=== PATIENT | male | born 1955 | race Caucasian/White ===

== ENCOUNTER → 2018-04-05 | Outpatient (CLI) | payer OTHER ==
[~2018-04-05] VITALS: Ht 170.2 cm; Wt 83.2 kg
[~2018-04-05] MED LIST: ABILIFY 5 MG TAB5 M1 PO; AMITRIPTYLINE H10 M3 PO; BUSPIRONE HCL10 MG PO; CELEXA20 MG PO; CLONIDINE0.1 PO; COMPACT COMPRE1 EACH INH; COREG6.25 MG PO; FLOVENT HFA 4444 MCG INH; FLOVENT HFA12 GM INH; FLUTICASONE PRO30 G1; HYDROCODON-ACE1 EAC5 PO; K-DUR10 MEQ PO; LASIX 20 MG TAB20 MG PO; MSL20MG/ML EPIDURAL; NORCO 10-325 T1 EACH PO; NU-MAG71.5 MG PO; OMEPRAZOLE 20 M20 M1 PO; OXYGEN MISCELL; PERCOCET 10-321 EAC1 PO; PROAIR RESPICL90 MCG INH; TRIAMTERENE-HC1 EAC1 PO; VALIUM5 MG PO; VENTOLIN HFA 1818 GM INH; ZYRTEC10 M2 PO
--- NOTE | ~2018-04-05 | HPC ---
Formerly [facility] [address] [address] PAIN MANAGEMENT CONSULTATION Name: CHICHI ALMONTE Room #: REG [facility] [id number] Admission: 04/05/18 ������������������ Attend Phys: Chichi Merino MD Discharge: ������������������ Date of : 53 Report #: [id number] THIS REPORT FOR: //name// CC: Jose Daniel Merino DATE OF SERVICE: 04/05/2018 CHIEF COMPLAINT: Followup visit for chronic low back pain, cervicalgia with spondylosis. Management of high risk medication after idling intrathecal infusion pump. This is the first visit for this patient at the [place] pain management center. I have followed him at [facility]. He had an intrathecal infusion pump placed, but we could never seem to make it work effectively for him despite multiple adjustments. He felt that it was "making him crazy." Since going off of the intrathecal medication, he says he is doing much better. He is now receiving oral opioids under terms of written opioid agreement. I reviewed his detailed responsibilities primarily safeguarding medications, taking them as ordered by the physician and receiving medications from only one prescribing physician. His daily dose is [place] 10/325 one tablet taken on schedule 3 times a day. He has no significant side effects. His morphine milligram equivalency is 30. PQRS REVIEW: He has degenerative osteoarthritis involving multiple joints including shoulders, hips, knees and ankles. He does not smoke, is on no blood thinning medications and does not appear to be a fall risk. He is not hypertensive. He has signed an opioid agreement. He is considered low to moderate risk for addictive behaviors. His functional assessment score today is 31/70. He continues to smoke 1-1/2 pack of cigarettes per day and was counseled on smoking cessation and provided with handouts. He is not motivated to quit at this time. The influence of smoking on chronic pain was discussed. PHYSICAL EXAMINATION: Pleasant gentleman. Blood pressure is 130/93, heart rate 90, respirations 16. BMI 28.7. He moves independently from sitting to standing position. His gait is nonantalgic. He has tenderness of his shoulders, hips, knees and ankles. There is no swelling. No joint effusions. No redness. Straight leg raising is positive bilaterally. He has pain across the lumbosacral segment with decreased range of motion. IMPRESSION: 1. Chronic intractable low back pain with radiculopathy. 2. Osteoarthritis, multiple joints. 3. Cervical spondylosis without radiculopathy. Formerly [facility] [address] [place] [address] PAIN MANAGEMENT CONSULTATION Name: CHICHI ALMONTE Room #: REG [facility]#: [id number] Admission: 04/05/18 ������������������ Attend Phys: Chichi Merino MD Discharge: ������������������ Date of : 53 Report #: [id number] 4. Management of high risk opioid medications under terms of written agreement. Medications renewed for monthly release over the next 3 months and I will see him back in the pain clinic. Urine drug screen or a buccal drug screen will be performed annually in a random fashion. ��������������������������������������������� ���������������������������������������� By: ��������������������������������������������� 1616 0024 Chichi Merino MD /nt
[2018-04-05 10:25] VITALS: BP 130/93
--- NOTE | 2018-04-05 11:01 | NUR ---
Pain Clinic Assessment: 1. History of Osteoarthritis: History of Rheumatoid Arthritis: 2. Height: 5 ft. 7 in. 170.2 cm. Weight: 183.4 lb. oz. 83.190 kg. Patient's BMI: 28.7 3. Vital Signs: BP: 130/93 Pulse: 90 Resp: 16 Temp: 02 Sat: 95 ECG Mon: 4. Pain Intensity: 6 5. Fall Risk: Dizziness: N Needs help standing or walking: N Fallen in the last 3 months: N Fall risk comments: 6. Patient on Blood Thinner: None 7. History of Hypertension: Y 8. Opioid Therapy greater than 6 weeks: Opiate Contract Signed: 9. Risk Assessment Tool Provided: 10. Functional Assessment Tool: 11. Recreational Drug Use: Never Drug Type: Tobacco Use: Current Every Day Smoker Tobacco Type: Cigarettes Amount or Packs/day: 1.5 How Many Years: 45 Alcohol Use: No Frequency: Quant:
== END ==
LOC: PAIN 07:03
DX: M47.22 Other spondylosis with radiculopathy, cervical region (principal); G89.4 Chronic pain syndrome; M19.90 Unspecified osteoarthritis, unspecified site; Z79.899 Other long term (current) drug therapy

== ENCOUNTER → 2018-07-01 | Outpatient (CLI) | payer OTHER ==
[~2018-07-01] VITALS: Ht 170.2 cm; Wt 90.7 kg
[~2018-07-01] MED LIST changes: +ANORO ELLIPTA1 EACH INH
[2018-07-01 14:08] VITALS: BP 155/95
--- NOTE | 2018-07-01 14:26 | NUR ---
Pain Clinic Assessment: 1. History of Osteoarthritis: History of Rheumatoid Arthritis: 2. Height: 5 ft. 7 in. 170.2 cm. Weight: 200.0 lb. oz. 90.720 kg. Patient's BMI: 31.3 3. Vital Signs: BP: 155/95 Pulse: 82 Resp: 20 Temp: 02 Sat: 100 ECG Mon: 4. Pain Intensity: 6 5. Fall Risk: Dizziness: N Needs help standing or walking: N Fallen in the last 3 months: N Fall risk comments: 6. Patient on Blood Thinner: None 7. History of Hypertension: Y 8. Opioid Therapy greater than 6 weeks: Y Opiate Contract Signed: 9. Risk Assessment Tool Provided: 10. Functional Assessment Tool: 11. Recreational Drug Use: Never Drug Type: Tobacco Use: Former Smoker Tobacco Type: Cigarettes Amount or Packs/day: 0 How Many Years: Alcohol Use: No Frequency: Quant:
--- NOTE | 2018-07-02 11:04 | HPC ---
[facility] [address] [address] PAIN MANAGEMENT CONSULTATION Name: SUZYCHICHI Kristen [facility] [id number] Admission: 07/01/18 ������������������ Attend Phys: Maris Johnson Discharge: ������������������ Date of : 53 Report #: [id number] THIS REPORT FOR: //name// CC: Maris Alex DATE OF SERVICE: 07/01/2018 CHIEF COMPLAINT: Chronic low back pain, cervicalgia and spondylosis. HISTORY OF PRESENT ILLNESS: This is a pleasant 62-year-old gentleman who returns to the pain clinic today for refill of his opioid medications. He has been seen by Dr. Merino for quite some time, mostly at [facility]. He does have an intrathecal infusion pump that is on minimal rate. He tells me he would like to have it removed, but he does not want to have another surgery, so it is on minimum rate and he does not use it for pain control. The patient tells me today that his pain is 6/10, mostly in his neck, shoulders, arms and his hips. He feels that his hip pain is related to an increase in weight that he has put on over the winter since he has stopped smoking. His weight today is 200 pounds, and previously it was 183. He tells me he is going to try and start walking now that the weather is better to decrease some of this weight. He feels that his pain is a shooting, constant deep ache, worse with movement and weather and better with the medication. The patient tells me his ultimate goal is to wean off all of his narcotics, but does not feel that he could do that currently, though he has decreased from 6 pills a day to 3. ALLERGIES: NONSTEROIDAL ANTI-INFLAMMATORIES, CODEINE, IBUPROFEN, ADHESIVE AND BENADRYL. CURRENT MEDICATIONS: Hydrocodone 10/325 every 8 hours, oxygen at night, albuterol inhaler as needed, Flovent inhaler twice a day, Lasix 20 mg b.i.d., Zyrtec 10 mg daily, Nu-Mag daily, clonidine 0.1 mg b.i.d., buspirone 10 mg t.i.d., Elavil 10 mg at bedtime, diazepam 5 mg at bedtime p.r.n., potassium 10 mEq b.i.d., triamterene/hydrochlorothiazide daily, and omeprazole 20 mg b.i.d. PQRS: The patient has osteoarthritic changes involving multiple joints of shoulders, hips, knees and ankles. Denies any rheumatoid arthritis. Height is 5 feet 7 inches, weight is 200, BMI is 31, this is a 20-pound increase since his last visit. Vital signs: Blood pressure 155/95, pulse 82, respirations 20, oxygen sat 100. Pain score is 6/10. Fall risk. Denies dizziness. Does not need help with walking or standing. He has not fallen in the last 3 months. The patient is not on any blood thinners. He does have a history of hypertension. [address] [address] PAIN MANAGEMENT CONSULTATION Name: CHICHI ALMONTE Room #: REG [facility]#: [id number] Admission: 07/01/18 ������������������ Attend Phys: Maris Johnson Discharge: ������������������ Date of : 53 Report #: [id number] Opioid therapy is greater than 6 weeks. His risk assessment tool is low. His functional assessment is 31/70. Recreational drug use: He denies. He is a former smoker and does not drink alcohol. We did check the prescription monitoring system. The patient is filling appropriately from Dr. Chichi Merino and he is due for his medications today. PHYSICAL EXAMINATION: GENERAL: This is a very pleasant 62-year-old gentleman who appears his stated age. Placing his pain score today at 6/10. He is alert and orientated. HEENT: Normocephalic, atraumatic. Extraocular eye muscles are intact. Mucous membranes are moist. MUSCULOSKELETAL: He moves independently from sitting to standing position. His gait is nonantalgic. He has tenderness in his shoulders, hips and neck. He does have pain across his lumbosacral area that does not radiate into his legs. His lower extremity strength judged to be 5/5 in all major muscle groups and upper extremity strength judged to be 5/5 in all major muscle groups and tone. IMPRESSION: 1. Chronic intractable low back pain with radiculopathy. 2. Osteoarthritis of multiple joints. 3. Cervical spondylosis without radiculopathy. 4. Management of high risk medications under terms of written opioid agreement. We reviewed the fact that opiate medications are being used to provide analgesia adequate to support activities of daily living, not attempting to achieve a specific pain score on the 0-10 Visual Analog Scale. The current opiate medications are providing sufficient analgesia to allow the patient to participate in activities of daily living. The patient is not exhibiting any aberrant behavior suggestive of drug diversion. The patient is not having any adverse reactions to medications. The patient is not suffering from daytime somnolence or mental acuity changes. The patient is managing opiate-induced constipation with appropriate hlhm-swb-mvrgqyl agents and dietary considerations. The patient was counseled on concern for caution with operating a motor vehicle while using opiate medications. A physical exam was performed and the patient's functional status was evaluated. All patients with back pain were advised against the bed rest greater than 4 days and were advised to return to normal activities. Pain score assessment was noted and the treatment plan was reviewed with the patient. All current medications, both prescribed and OTC were reviewed and reconciled on the electronic medical record. Tobacco screening was accomplished and smoking cessation was advised when indicated. BMI was noted and diet/exercise modification was recommended for all patients following outside normal parameters. [address] [address] PAIN MANAGEMENT CONSULTATION Name: SUZYCHICHI Kristen Room #: REG [facility].#: [id number] Admission: 07/01/18 ������������������ Attend Phys: Maris Johnson Discharge: ������������������ Date of : 53 Report #: [id number] I reviewed with the patient today their responsibilities to safeguard prescription medications, reviewed their responsibility to utilize medications only as prescribed by the physician. They are to seek and receive pain medications only from 1 physician group ( [facility]). They are to use 1 pharmacy and keep the clinic informed if they change pharmacies. Their responsibilities include making followup visits in a timely fashion and to avoid abrupt discontinuation of medication usage. Their responsibilities further include bringing their medications (bottles from the pharmacy with residual pills) to the visit for possible confirmation of pill counts and the patient understands it is their responsibility to submit to random drug screens to ensure both that the medications prescribed are present, and that no other controlled substances are present. All prescriptions provided today were generated electronically. PLAN: 1. We discussed treatment options with the patient today. The patient tells me that he is doing quite well on his current pain medication regimen. His ultimate goal is to wean off of them, but feels like he cannot do that right now until he loses some weight that he had gained from his smoking cessation. He tells me he needs to start exercising and he is planning to doing that now with his , working up slowly. He said they both need to lose some weight. The patient tells me that they have only been walking short distances currently. He would like to continue his medication for now. denies constipation or overmedicated feeling. 2. Script was given today for hydrocodone , #90 with release today, 4-week and 8-week. 3. Dr. Chichi Merino did come and see the patient as well today in collaborative care. ��������������������������������������������� <ELECTRONICALLY SIGNED> ���������������������������������������� By: Maris Johnson ��������������������������������������������� 07/02/18 1104 1616 [id number] Maris Johnson /janette
== END ==
LOC: PAIN 07:00
DX: M47.812 Spondylosis without myelopathy or radiculopathy, cervical region (principal); M19.90 Unspecified osteoarthritis, unspecified site; G89.4 Chronic pain syndrome; Z88.8 Allergy status to other drugs, medicaments and biological substances; Z79.899 Other long term (current) drug therapy

== ENCOUNTER → 2018-09-24 | Outpatient (CLI) | payer OTHER ==
[~2018-09-24] VITALS: Ht 170.2 cm; Wt 98.2 kg
[2018-09-24 08:45] VITALS: BP 155/96
--- NOTE | 2018-09-24 08:56 | NUR ---
Pain Clinic Assessment: 1. History of Osteoarthritis: History of Rheumatoid Arthritis: 2. Height: 5 ft. 7 in. 170.2 cm. Weight: 216.6 lb. oz. 98.249 kg. Patient's BMI: 33.9 3. Vital Signs: BP: 155/96 Pulse: 72 Resp: 14 Temp: 02 Sat: 100 ECG Mon: 4. Pain Intensity: 5-6 5. Fall Risk: Dizziness: N Needs help standing or walking: N Fallen in the last 3 months: N Fall risk comments: 6. Patient on Blood Thinner: None 7. History of Hypertension: Y 8. Opioid Therapy greater than 6 weeks: Y Opiate Contract Signed: 9. Risk Assessment Tool Provided: LOW 10. Functional Assessment Tool: 11. Recreational Drug Use: Never Drug Type: Tobacco Use: Former Smoker Tobacco Type: Amount or Packs/day: How Many Years: Alcohol Use: No Frequency: Quant:
--- NOTE | 2018-09-27 11:24 | HPC ---
[facility] [address] [place] [address] PAIN MANAGEMENT CONSULTATION Name: CHICHI ALMONTE Room #: REG [facility] Dai#: [id number] Admission: 09/24/18 Attend Phys: Maris Johnson Discharge: Date of : 53 Report #: [id number] THIS REPORT FOR: //name// CC: Maris Alex DATE OF SERVICE: 09/24/2018 CHIEF COMPLAINT: Chronic low back pain, cervicalgia and spondylosis. HISTORY OF PRESENT ILLNESS: This is a 62-year-old gentleman who returned to the pain clinic today for refill of his medications. He has been following up with Dr. Chichi Merino for quite some time. He does have intrathecal pump placed, though it is not in use. He would have it removed, but he does not want to have another surgery. Today, he reports his pain score is a 5/10 that is well controlled with his hydrocodone. He complains of neck pain that does radiate into his shoulders. It is worse with lifting and movement and weather changes, better with his medication and relaxing. He denies any problems with constipation or daytime sleepiness. The patient has quit smoking over the past year. His last cigarette he tells me he was 7 months ago, but since he has stopped smoking he has gained weight. Our visit with him in March where we did weigh him was 183. Today his current weight is 216, which is a significant weight gain. He does tell me he has been having some more difficulty breathing since he has quit smoking. ALLERGIES: NONSTEROIDAL ANTI-INFLAMMATORIES, CODEINE, IBUPROFEN, ADHESIVE TAPE AND BENADRYL. CURRENT LIST OF MEDICATIONS: Hydrocodone 10/325 three times a day, Anoro Ellipta inhaler, Flovent, Lasix, Zyrtec, Nu-Mag, clonidine, buspirone, Elavil, diazepam, potassium, triamterene, omeprazole. PQRS: 1. He has arthritic changes involving multiple joints of his shoulders, hips, knees and ankles. He denies any rheumatoid arthritis. 2. Height is 5 feet 7 inches, weight is 216, BMI is 33. 3. Vital signs: 155/96, pulse is 72, respirations 14, oxygen sat is 100. 4. Pain score is 5-6. 5. Denies dizziness. Does not need help walking or standing, has not fallen in the last 3 months. 6. The patient is not on any blood thinners, but does take medicine for hypertension. His opioid therapy is greater than 6 weeks; therefore, an opioid signed contract is on the chart. His risk assessment tool is low. Functional assessment is . 7. Recreational drug use, he denies. He is a former smoker and does not drink [address] [address] PAIN MANAGEMENT CONSULTATION Name: CHICHI ALMONTE Room #: REG [facility] Dai#: [id number] Admission: 09/24/18 Attend Phys: Maris Johnson Discharge: Date of : 53 Report #: [id number] alcohol. According to the prescription monitoring system, the patient is filling appropriately and due for his medications to be refilled. PHYSICAL EXAMINATION: GENERAL: This is a pleasant 62-year-old gentleman who appears his stated age. He is alert and orientated, rating his pain score today at 5/6. HEENT: Normocephalic, atraumatic. Extraocular eye muscles are intact. Mucous membranes are moist. MUSCULOSKELETAL: He moves from sitting to standing without difficulty. His gait is nonantalgic. He has tenderness across his shoulders and his neck, radiates down into bilateral arms today. His lower extremity strength judged to be 5/5 in all major muscle groups. Upper extremity strength judged to be 5/5 in all major muscle groups. He does have an intrathecal pump placed in his lower left abdomen. IMPRESSION: 1. Chronic intractable low back pain with radiculopathy. 2. Osteoarthritis of multiple joints. 3. Cervical spondylosis with radiculopathy. 4. Management of high risk medications under terms of written opioid agreement. We reviewed the fact that opiate medications are being used to provide analgesia adequate to support activities of daily living, not attempting to achieve a specific pain score on the 0-10 Visual Analog Scale. The current opiate medications are providing sufficient analgesia to allow the patient to participate in activities of daily living. The patient is not exhibiting any aberrant behavior suggestive of drug diversion. The patient is not having any adverse reactions to medications. The patient is not suffering from daytime somnolence or mental acuity changes. The patient is managing opiate-induced constipation with appropriate gaos-lzs-pkhvzvn agents and dietary considerations. The patient was counseled on concern for caution with operating a motor vehicle while using opiate medications. A physical exam was performed and the patient's functional status was evaluated. All patients with back pain were advised against the bed rest greater than 4 days and were advised to return to normal activities. Pain score assessment was noted and the treatment plan was reviewed with the patient. All current medications, both prescribed and OTC were reviewed and reconciled on the electronic medical record. Tobacco screening was accomplished and smoking cessation was advised when indicated. BMI was noted and diet/exercise modification was recommended for all patients following outside normal parameters. I reviewed with the patient today their responsibilities to safeguard prescription medications, reviewed their responsibility to utilize medications only as prescribed by the physician. They are to seek and receive pain [facility] [address] [place] [address] PAIN MANAGEMENT CONSULTATION Name: CHICHI ALMONTE Room #: REG [facility]#: [id number] Admission: 09/24/18 Attend Phys: Maris Johnson Discharge: Date of : 53 Report #: [id number] medications only from 1 physician group ( [facility]). They are to use 1 pharmacy and keep the clinic informed if they change pharmacies. Their responsibilities include making followup visits in a timely fashion and to avoid abrupt discontinuation of medication usage. Their responsibilities further include bringing their medications (bottles from the pharmacy with residual pills) to the visit for possible confirmation of pill counts and the patient understands it is their responsibility to submit to random drug screens to ensure both that the medications prescribed are present, and that no other controlled substances are present. All prescriptions provided today were generated electronically. PLAN: 1. We discussed treatment options with the patient today. The patient recently has quit smoking over the past few months. We praised him for that though he has gained significant weight up 40 pounds since March of this year. We encouraged him to decrease his Pepsi intake. He tells us that he drinks six 20-ounce bottles a day, which has significant amount of calories. He tells me he does not want to stop that and drink water. We encouraged him to at least switch to diet. How those are empty calories just adding to his weight gain. We also talked about increasing his exercise to help decrease this weight gain. 2. Scripts given for his hydrocodone , #90 for release today for an 8 week. The patient denies any problems with constipation or daytime sleepiness. His current morphine mEq is 30 MME according to the CDC guidelines. 3. The patient will return in [address] Dontrell Baum did see the patient today and collaborated care. <ELECTRONICALLY SIGNED> By: Maris Johnson 09/27/18 1124 0923 [id number] Maris Johnson /nt
== END ==
LOC: PAIN 06:40
DX: M47.22 Other spondylosis with radiculopathy, cervical region (principal); M47.26 Other spondylosis with radiculopathy, lumbar region; M19.90 Unspecified osteoarthritis, unspecified site; Z79.891 Long term (current) use of opiate analgesic; Z88.8 Allergy status to other drugs, medicaments and biological substances; Z91.048 Other nonmedicinal substance allergy status; Z79.899 Other long term (current) drug therapy

== ENCOUNTER → 2018-12-16 | Outpatient (CLI) | payer OTHER ==
[~2018-12-16] VITALS: Ht 170.2 cm; Wt 91.5 kg
[2018-12-16 09:01] VITALS: BP 129/85
--- NOTE | 2018-12-16 09:13 | NUR ---
Pain Clinic Assessment: 1. History of Osteoarthritis: SPINE KNEES LEFT SHOULDER History of Rheumatoid Arthritis: Not Applicable 2. Height: 5 ft. 7 in. 170.2 cm. Weight: 201.8 lb. oz. 91.536 kg. Patient's BMI: 31.6 3. Vital Signs: BP: 129/85 Pulse: 83 Resp: 14 Temp: 02 Sat: 95 ECG Mon: 4. Pain Intensity: 7-8 5. Fall Risk: Dizziness: N Needs help standing or walking: N Fallen in the last 3 months: N Fall risk comments: 6. Patient on Blood Thinner: None 7. History of Hypertension: Y 8. Opioid Therapy greater than 6 weeks: Y Opiate Contract Signed: 9. Risk Assessment Tool Provided: LOW-2 10. Functional Assessment Tool: 11. Recreational Drug Use: Never Drug Type: Tobacco Use: Former Smoker Tobacco Type: Amount or Packs/day: How Many Years: Alcohol Use: No Frequency: Quant:
--- NOTE | 2018-12-17 10:12 | HPC ---
[facility] [address] [address] PAIN MANAGEMENT CONSULTATION Name: MARCIOMAXINECHICHI Kristen [facility] #: [facility] [id number] Admission: 12/16/18 Attend Phys: Maris Johnson Discharge: Date of : 53 Report #: [id number] THIS REPORT FOR: //name// CC: Maris Alex DATE OF SERVICE: 12/16/2018 CHIEF COMPLAINT: Low back pain, cervicalgia and spondylosis. HISTORY OF PRESENT ILLNESS: This is a 62-year-old gentleman who returns to the pain clinic today for refill of his medications that he uses to help control his ongoing neck pain that does radiate into his bilateral arms as well as his left foot pain. He does complain of low back pain at times as well. All these pains are worse with movement, lifting and standing and weather changes. He rates his pain score as 7-8 today. He denies any problems with constipation or daytime sleepiness from this medication. He feels that when he relaxes and repositioning himself as well as using his medication that his pain relief is better. He is doing quite well on his current regimen. The patient continues to not smoke and has been 8 months. He had complained last time he was gaining weight, so we encouraged him to decrease his Pepsi intake and try to decrease his caloric intake and be as active as he is able and today he is down from 216-201 in his weight. He reports that it is hard to decrease his Pepsi consumption, but he is feeling better since he has lost some weight. ALLERGIES: NONSTEROIDAL ANTI-INFLAMMATORIES, CODEINE, IBUPROFEN, ADHESIVE AND BENADRYL. CURRENT LIST OF MEDICATIONS: Hydrocodone 10/325 t.i.d., Anoro Ellipta inhaler daily, Lasix 20 mg b.i.d., Zyrtec p.r.n., magnesium daily, clonidine 0.1 mg b.i.d., buspirone 10 mg t.i.d., amitriptyline 20 mg daily, Valium 5 mg p.r.n., potassium 10 mEq b.i.d., triamterene/hydrochlorothiazide daily and omeprazole daily. PQRS: 1. He has a history of osteoarthritis in his spine, knees and left shoulder. He denies any rheumatoid arthritis. 2. Height is 5 feet 7 inches, weight is 201. BMI is 31. 3. Vital signs 129/85, pulse is 83, respirations 14, oxygen sat is 95. 4. Pain score is 7-8. 5. Denies dizziness, does not need help walking or standing, has not fallen in the last 3 months. 6. The patient is not on any blood thinners, but does take medicine for hypertension. [facility] [address] [place] [address] PAIN MANAGEMENT CONSULTATION Name: SUZYCHICHI Kristen Room #: REG [facility]#: [id number] Admission: 12/16/18 Attend Phys: Maris Johnson Discharge: Date of : 53 Report #: [id number] 7. Opioid therapy is greater than 6 weeks. His risk assessment tool is low. Functional assessment is . 8. Recreational drug use, he denies. He is a former smoker and does not drink alcohol. According to the prescription monitoring system, the patient is filling appropriately for his medication and is due to fill them this weekend. We will check a drug screen on this patient today and it has been greater than a year since his last screening. PHYSICAL EXAMINATION: GENERAL: This is a very pleasant 62-year-old gentleman who appears his stated age, placing his current pain score at 7-8. He is alert and orientated. HEENT: Normocephalic, atraumatic. Extraocular eye muscles are intact. Mucous membranes are moist. MUSCULOSKELETAL: The patient walks with a slightly antalgic gait. He moves from sitting to standing slowly and without difficulty. He has tenderness in his bilateral shoulders and his paraspinal muscles of his neck, worse with raising his arms or turning his head. Lower extremity strength judged to be 5/5 in all major muscle groups. He complains of numbness in his left foot. IMPRESSION: 1. Chronic intractable low back pain with radiculopathy. 2. Cervical spondylosis with radiculopathy. 3. Cervicalgia and spondylosis. 4. Osteoarthritis of multiple joints. 5. Management of high risk medications under terms of written opioid agreement. We reviewed the fact that opiate medications are being used to provide analgesia adequate to support activities of daily living, not attempting to achieve a specific pain score on the 0-10 Visual Analog Scale. The current opiate medications are providing sufficient analgesia to allow the patient to participate in activities of daily living. The patient is not exhibiting any aberrant behavior suggestive of drug diversion. The patient is not having any adverse reactions to medications. The patient is not suffering from daytime somnolence or mental acuity changes. The patient is managing opiate-induced constipation with appropriate vwaz-mdk-svfbeax agents and dietary considerations. The patient was counseled on concern for caution with operating a motor vehicle while using opiate medications. A physical exam was performed and the patient's functional status was evaluated. All patients with back pain were advised against the bed rest greater than 4 days and were advised to return to normal activities. Pain score assessment was noted and the treatment plan was reviewed with the patient. All current medications, both prescribed and OTC were reviewed and reconciled on the electronic medical record. Tobacco screening was accomplished and smoking [facility] [address] [place] [address] PAIN MANAGEMENT CONSULTATION Name: CHICHI ALMONTE Room #: REG [facility].#: [id number] Admission: 12/16/18 Attend Phys: Maris Johnson Discharge: Date of : 53 Report #: [id number] cessation was advised when indicated. BMI was noted and diet/exercise modification was recommended for all patients following outside normal parameters. I reviewed with the patient today their responsibilities to safeguard prescription medications, reviewed their responsibility to utilize medications only as prescribed by the physician. They are to seek and receive pain medications only from 1 physician group ( [facility]). They are to use 1 pharmacy and keep the clinic informed if they change pharmacies. Their responsibilities include making followup visits in a timely fashion and to avoid abrupt discontinuation of medication usage. Their responsibilities further include bringing their medications (bottles from the pharmacy with residual pills) to the visit for possible confirmation of pill counts and the patient understands it is their responsibility to submit to random drug screens to ensure both that the medications prescribed are present, and that no other controlled substances are present. All prescriptions provided today were generated electronically. PLAN: 1. We discussed treatment options with the patient today. He is doing well on his current pain regimen of hydrocodone 10/325 three times a day. We will refill these medicines today, 4-week and 8-week. This does place the patient at 30 morphine mEq according to the CDC guidelines. 2. We will obtain a urine specimen for random drug screen today. 3. Congratulated the patient on his continued smoking and his decreased weight loss. Since our last visit in September, he is down 15 pounds. 4. The patient is seen by Dr. Chichi Merino who also collaborated care today. <ELECTRONICALLY SIGNED> By: Maris Johnson 12/17/18 [id number] Maris Johnson /nt
== END ==
LOC: PAIN 07:00
DX: Z76.0 Encounter for issue of repeat prescription (principal); M47.22 Other spondylosis with radiculopathy, cervical region; I10 Essential (primary) hypertension; Z88.5 Allergy status to narcotic agent; Z88.6 Allergy status to analgesic agent; Z88.8 Allergy status to other drugs, medicaments and biological substances; Z79.891 Long term (current) use of opiate analgesic; Z79.899 Other long term (current) drug therapy

== ENCOUNTER → 2019-03-10 | Outpatient (CLI) | payer OTHER ==
[~2019-03-10] VITALS: Ht 170.2 cm; Wt 92.4 kg
[2019-03-10 09:01] VITALS: BP 129/82
--- NOTE | 2019-03-10 09:21 | NUR ---
Pain Clinic Assessment: 1. History of Osteoarthritis: SPINE KNEES LEFT SHOULDER History of Rheumatoid Arthritis: Not Applicable 2. Height: 5 ft. 7 in. 170.2 cm. Weight: 203.6 lb. oz. 92.352 kg. Patient's BMI: 31.9 3. Vital Signs: BP: 129/82 Pulse: 113 Resp: 14 Temp: 02 Sat: 90 ECG Mon: 4. Pain Intensity: 7 5. Fall Risk: Dizziness: Y Needs help standing or walking: N Fallen in the last 3 months: N Fall risk comments: 6. Patient on Blood Thinner: None 7. History of Hypertension: Y 8. Opioid Therapy greater than 6 weeks: Y Opiate Contract Signed: 9. Risk Assessment Tool Provided: LOW-2 10. Functional Assessment Tool: 11. Recreational Drug Use: Never Drug Type: Tobacco Use: Former Smoker Tobacco Type: Amount or Packs/day: How Many Years: Alcohol Use: No Frequency: Quant:
--- NOTE | 2019-03-14 08:33 | HPC ---
[facility] [place] [address] PAIN MANAGEMENT CONSULTATION Name: CHICHI ALMONTE Room #: [facility] [id number] Admission: 03/10/19 Attend Phys: Maris Johnson Discharge: Date of : 53 Report #: [id number] THIS REPORT FOR: //name// CC: Maris Merino MD DATE OF SERVICE: 03/10/2019 CHIEF COMPLAINT: Low back pain, cervical myalgia and spondylosis. HISTORY OF PRESENT ILLNESS: This is a 63-year-old gentleman who returns to the pain clinic today, looking quite ill. He has been having difficulty breathing. His oxygen levels are below 90%. He reports that he has not been feeling well for the past several days, but has not sought any medical attention. He reports he feels like he has had a fever off and on, but is afebrile presently. His is here present with him today. The patient is normally seen in our clinic for his ongoing neck and shoulder pain as well as bilateral arm pain. He does still currently have an intrathecal pump placed in his abdomen that is not being used on a regular basis, though it continues on minimal rate. We did check the volume which was 25.4 mL still left in his pump. We have discussed having this removed with him by his surgeon. The patient is still considering this option. The patient's pain today is a 7/10, worse with any movement or weather changes and prolonged walking. He fills them that he takes on a regular basis of his hydrocodone, is very beneficial in controlling his pain. Denies any problems with constipation. He has been sleepy the past few days, but he attributes this to not feeling well. ALLERGIES: NONSTEROIDALS, CODEINE, IBUPROFEN, ADHESIVE and BENADRYL. CURRENT LIST OF MEDICATIONS: Hydrocodone 10/325 t.i.d. p.r.n., Anoro Ellipta inhaler, Lasix, Zyrtec, magnesium, buspirone, amitriptyline, Valium, potassium, triamterene/hydrochlorothiazide and omeprazole. PQRS: 1. He has history of osteoarthritis in his spine, knees and shoulders. Denies any rheumatoid arthritis. 2. Height is 5 feet 7 inches, weight is 203, BMI is 31. 3. Vital signs 129/82, pulse is 113, respirations 14, oxygen sat is 90. 4. Pain score is 7/10. 5. Complains of slight dizziness, does not need help walking or standing, has not fallen in the last [address] [address] PAIN MANAGEMENT CONSULTATION Name: SUZYCHICHI Kristen Room #: [facility] [id number] Admission: 03/10/19 Attend Phys: Maris Johnson Discharge: Date of : 53 Report #: [id number] 6. The patient is not on any blood thinners, but does take medicine for hypertension. Opioid therapy is greater than 6 weeks. His risk assessment tool is low. Functional assessment is 31/70. 7. Recreational drug use, he denies. He is a former smoker and does not drink alcohol. According to the prescription monitoring system, the patient is filling timely and due to fill his medicines this weekend. His morphine mEq according to the CDC guidelines is 30 MME. There is a recent random drug screen on the chart that is appropriate for his medicines. PHYSICAL EXAMINATION: GENERAL: This is a 63-year-old gentleman who appears his stated age, slightly pale in color today, rating his pain score at 7/10. He is alert and orientated. HEENT: Normocephalic, atraumatic. Extraocular eye muscles are intact. Mucous membranes are moist. LUNGS: Diminished with crackles in his bases. He has shortness of breath with pulse ox reading of less than 90. He is not on any supplemental oxygen. The patient has a productive cough. MUSCULOSKELETAL: The patient walks with a slightly antalgic gait, moves from sitting to standing slowly. He has tenderness in his paraspinal musculatures of his neck and between his scapula. This is worse with raising his arms or flexion and extension of his neck. IMPRESSION: 1. Chronic intractable low back pain. 2. Cervical spondylosis with radiculopathy, cervicalgia with spondylosis. 3. Osteoarthritis of multiple joints. 4. Respiratory infection/virus. 5. Management of high risk medications under terms of written opioid agreement. We reviewed the fact that opiate medications are being used to provide analgesia adequate to support activities of daily living, not attempting to achieve a specific pain score on the 0-10 Visual Analog Scale. The current opiate medications are providing sufficient analgesia to allow the patient to participate in activities of daily living. The patient is not exhibiting any aberrant behavior suggestive of drug diversion. The patient is not having any adverse reactions to medications. The patient is not suffering from daytime somnolence or mental acuity changes. The patient is managing opiate-induced constipation with appropriate ntet-cgx-vkyknwf agents and dietary considerations. The patient was counseled on concern for caution with operating a motor vehicle while using opiate medications. PLAN: 1. We discussed the patient's ongoing illness. The patient feels like he may have the flu or respiratory virus. He has not sought medical attention. We did [address] [address] PAIN MANAGEMENT CONSULTATION Name: CHICHI ALMONTE Room #: REG [facility]#: [id number] Admission: 03/10/19 Attend Phys: Maris Johnson Discharge: Date of : 53 Report #: [id number] encourage him to either attend our Emergency Room or make a primary care appointment today due to his ongoing respiratory issues and his oxygen levels being low. The patient is to see his primary doctor at 3:00 today. 2. We will refill his hydrocodone 10/325, #90 for 3 months. These will be sent electronically by Dr. Chichi Merino. 3. We did read his intrathecal pump. He does have 25.4 mL left in his pump. It is set at minimum rate. We are not using this for pain control currently. I encouraged the patient to talk to his surgeon about removing this if it has become bothersome. 4. We did discuss his smoking. The patient states that he still is not smoking, though it smells heavily of tobacco in the room. His admits that she smokes. I encouraged her not to smoke around him,especially if he is on oxygen. They verbalized understanding. 5. The patient is seen in collaboration with Dr. Chichi Merino. The patient will return in 3 months for medications. <ELECTRONICALLY SIGNED> By: Maris Johnson 03/14/19 0833 [id number] Maris Johnson /janette
== END ==
LOC: PAIN 06:38
DX: G89.4 Chronic pain syndrome (principal); M47.22 Other spondylosis with radiculopathy, cervical region; M19.90 Unspecified osteoarthritis, unspecified site; Z79.891 Long term (current) use of opiate analgesic

== ENCOUNTER → 2019-06-06 | Outpatient (CLI) | payer OTHER ==
[~2019-06-06] VITALS: Ht 170.2 cm; Wt 91.6 kg
[2019-06-06 09:00] VITALS: BP 169/103
--- NOTE | 2019-06-06 09:05 | NUR ---
Pain Clinic Assessment: 1. History of Osteoarthritis: SPINE KNEES LEFT SHOULDER History of Rheumatoid Arthritis: Not Applicable 2. Height: 5 ft. 7 in. 170.2 cm. Weight: 202.0 lb. oz. 91.627 kg. Patient's BMI: 31.6 3. Vital Signs: BP: 169/103 Pulse: 89 Resp: 20 Temp: 02 Sat: 92 ECG Mon: 4. Pain Intensity: 7 5. Fall Risk: Dizziness: N Needs help standing or walking: N Fallen in the last 3 months: N Fall risk comments: 6. Patient on Blood Thinner: None 7. History of Hypertension: Y 8. Opioid Therapy greater than 6 weeks: Y Opiate Contract Signed: 9. Risk Assessment Tool Provided: LOW-2 10. Functional Assessment Tool: 11. Recreational Drug Use: Never Drug Type: Tobacco Use: Former Smoker Tobacco Type: Amount or Packs/day: How Many Years: Alcohol Use: No Frequency: Quant:
--- NOTE | 2019-06-07 10:46 | HPC ---
[facility] [address] [address] PAIN MANAGEMENT CONSULTATION Name: CHICHI ALMONTE Room #: [facility] [id number] Admission: 06/06/19 Attend Phys: Maris Johnson Discharge: Date of : 53 Report #: [id number] THIS REPORT FOR: cc: Efrain Garg MD, James E. MD Hocker,Maris MOORE ~ CC: Efrain Garg DATE OF SERVICE: 06/06/2019 CHIEF COMPLAINT: Cervical myalgias and spondylosis. HISTORY OF PRESENT ILLNESS: This is a 63-year-old gentleman who returns to the pain clinic today for refill of his medications that he uses to help treat his chronic neck and shoulder pain. He does have ongoing low back pain as well, but that today is not problematic. He states that his neck has been quite stiff lately, especially with the weather changes. He is rating his pain at a 7/10 today. He reports that standing prolonged and prolonged walking are also factors that increase his pain. He states that the medication and distraction are very beneficial in helping reduce his pain each day. The patient reports that he feels he had the COVID virus in March. He had severe respiratory problems as well as diarrhea. He finally did go to seek medical attention, but that was before any testing for COVID-19. He believes he had that as well as his . Today, he is here present wearing oxygen at 2 liters, which he has had for quite some time, though usually he does not wear it at his office visits. He denies problems with any diarrhea currently or any constipation issues. He takes a daily probiotic, which is beneficial. ALLERGIES: NONSTEROIDALS, CODEINE, IBUPROFEN, ADHESIVE TAPE, AND BENADRYL. CURRENT LIST OF MEDICATIONS: Hydrocodone 10/325, Anoro Ellipta inhaler, oxygen 2 liters, Lasix, Zyrtec, magnesium, buspirone, amitriptyline, Valium, potassium, triamterene/hydrochlorothiazide, omeprazole, and probiotic. PQRS: 1. He has osteoarthritis in his spine, knees and left shoulder. Denies any rheumatoid arthritis. 2. Height is 5 feet 7 inches, weight is 202, BMI is 31. 3. Vital signs 169/103, pulse is 89, respirations 20, oxygen sat is 92. 4. Pain score 7/10. 5. Denies dizziness, does not need help walking or standing, has not fallen in the last 3 months. 6. The patient is not on any blood thinners, but does take medicine for hypertension, which is slightly elevated today despite taking his medicines. [address] [address] PAIN MANAGEMENT CONSULTATION Name: CHICHI ALMONTE Room #: REG [facility] Dai#: [id number] Admission: 06/06/19 Attend Phys: Maris Johnson Discharge: Date of : 53 Report #: [id number] 7. Opiate therapy is greater than 6 weeks. He has an opioid signed contract in the chart. His risk assessment tool is low. Functional assessment is 70. 8. Recreational drug use, he denies. He is a former smoker and does not drink alcohol. According to the prescription monitoring system, he is due to fill his medicines today. His morphine milliequivalent is 30 MME per day. There is a drug screen on the chart within the past year. PHYSICAL EXAMINATION: GENERAL: This is alert and orientated 63-year-old gentleman who appears his stated age, placing his current pain score at 7/10 today. He is wearing nasal cannula. HEENT: Normocephalic, atraumatic. Extraocular eye muscles are intact. Mucous membranes are moist. LUNGS: Diminished lung sounds. He is wearing oxygen at 2 liters nasal cannula. No cough present today. MUSCULOSKELETAL: Tenderness in his paraspinal musculatures of his neck that radiate between his scapula bilaterally. He has tenderness in his left shoulder as well. He walks with a slow antalgic gait. He uses the armrest to move from the sitting to standing position. IMPRESSION: 1. Chronic intractable low back pain. 2. Cervical spondylosis with radiculopathy. 3. Cervicalgia with spondylosis. 4. Osteoarthritis of multiple joints. 5. Management of high risk medications under terms of written opioid agreement. We reviewed the fact that opiate medications are being used to provide analgesia adequate to support activities of daily living, not attempting to achieve a specific pain score on the 0-10 Visual Analog Scale. The current opiate medications are providing sufficient analgesia to allow the patient to participate in activities of daily living. The patient is not exhibiting any aberrant behavior suggestive of drug diversion. The patient is not having any adverse reactions to medications. The patient is not suffering from daytime somnolence or mental acuity changes. The patient is managing opiate-induced constipation with appropriate wrfq-etb-bnryqvf agents and dietary considerations. The patient was counseled on concern for caution with operating a motor vehicle while using opiate medications. A physical exam was performed and the patient's functional status was evaluated. All patients with back pain were advised against the bed rest greater than 4 days and were advised to return to normal activities. Pain score assessment was noted and the treatment plan was reviewed with the patient. All current [facility] [address] [place] [address] PAIN MANAGEMENT CONSULTATION Name: CHICHI ALMONTE Room #: REG [facility]#: [id number] Admission: 06/06/19 Attend Phys: Maris Johnson Discharge: Date of : 53 Report #: [id number] medications, both prescribed and OTC were reviewed and reconciled on the electronic medical record. Tobacco screening was accomplished and smoking cessation was advised when indicated. BMI was noted and diet/exercise modification was recommended for all patients following outside normal parameters. I reviewed with the patient today their responsibilities to safeguard prescription medications, reviewed their responsibility to utilize medications only as prescribed by the physician. They are to seek and receive pain medications only from 1 physician group ( [facility]). They are to use 1 pharmacy and keep the clinic informed if they change pharmacies. Their responsibilities include making followup visits in a timely fashion and to avoid abrupt discontinuation of medication usage. Their responsibilities further include bringing their medications (bottles from the pharmacy with residual pills) to the visit for possible confirmation of pill counts and the patient understands it is their responsibility to submit to random drug screens to ensure both that the medications prescribed are present, and that no other controlled substances are present. All prescriptions provided today were generated electronically. PLAN: 1. We discussed treatment options for the patient. The patient finds his hydrocodone very beneficial in controlling his pain. Today, we will refill hydrocodone 10/325, #90 for release today, 4 weeks and 8 weeks. These will be sent electronically by Dr. Chichi Merino to his pharmacy. 2. We discussed the COVID virus and encouraged the patient to fill in his medicines today and if able to decrease slightly, so he has a small supply at home and unsure of the supply chain will be disrupted, but the patient feels that his pharmacy will be able to get his medicine. Again, we encouraged the patient lowest most effective dose in case. 3. The patient is seen in collaboration with Dr. Chichi Merino. The patient will return in 3 months. <ELECTRONICALLY SIGNED> By: Maris Johnson 06/07/19 1046 [id number] Maris Johnson /nt
== END ==
LOC: PAIN 06:43
DX: M47.22 Other spondylosis with radiculopathy, cervical region (principal); M19.90 Unspecified osteoarthritis, unspecified site; G89.29 Other chronic pain; M54.5 Low back pain; M79.10 Myalgia, unspecified site; F11.20 Opioid dependence, uncomplicated; Z87.891 Personal history of nicotine dependence; Z88.5 Allergy status to narcotic agent; Z88.1 Allergy status to other antibiotic agents; Z88.8 Allergy status to other drugs, medicaments and biological substances; Z79.1 Long term (current) use of non-steroidal anti-inflammatories (NSAID); Z79.899 Other long term (current) drug therapy

== ENCOUNTER → 2019-08-25 | Outpatient (CLI) | payer OTHER ==
[~2019-08-25] VITALS: Ht 170.2 cm; Wt 91.7 kg
[~2019-08-25] MED LIST changes: +LASIX 40 MG TAB40 MG PO; +OXYGEN NASAL
[2019-08-25 08:57] VITALS: BP 138/89
--- NOTE | 2019-08-25 09:09 | NUR ---
Pain Clinic Assessment: 1. History of Osteoarthritis: SPINE KNEES LEFT SHOULDER NECK History of Rheumatoid Arthritis: Not Applicable 2. Height: 5 ft. 7 in. 170.2 cm. Weight: 202.2 lb. oz. 91.717 kg. Patient's BMI: 31.7 3. Vital Signs: BP: 138/89 Pulse: 89 Resp: 14 Temp: 02 Sat: 98 ECG Mon: 4. Pain Intensity: 7 5. Fall Risk: Dizziness: N Needs help standing or walking: N Fallen in the last 3 months: N Fall risk comments: 6. Patient on Blood Thinner: None 7. History of Hypertension: Y 8. Opioid Therapy greater than 6 weeks: Y Opiate Contract Signed: 9. Risk Assessment Tool Provided: LOW-2 10. Functional Assessment Tool: 11. Recreational Drug Use: Never Drug Type: Tobacco Use: Former Smoker Tobacco Type: Amount or Packs/day: How Many Years: Alcohol Use: No Frequency: Quant:
--- NOTE | 2019-08-25 12:43 | HPC ---
[facility] [employer] (Inspect Manager) [place] [address] PAIN MANAGEMENT CONSULTATION Name: CHICHI ALMONTE Room #: REG [facility].#: [id number] Admission: 08/25/19 Attend Phys: Maris Johnson Discharge: Date of : 53 Report #: [id number] THIS REPORT FOR: cc: Efrain Garg MD, James E. MD Hocker,Maris MOORE ~ CC: Chichi Merino MD DATE OF SERVICE: 08/25/2019 CHIEF COMPLAINT: Cervical myalgias, spondylosis, low back pain. HISTORY OF PRESENT ILLNESS: This is a 63-year-old gentleman who returns to the pain clinic today for refill of his opioid medications that he takes for his ongoing neck and shoulder pain. He is also reporting some low back pain today as well, rating his pain a 7/10. It is a throbbing pain. He is reporting numbness in his feet and hands. He has been seeing a cardiology consultants who performed an echo and he reports he is going to see possibly a director of marketing operations or neurologist. He is very unsure who he is seeing next week for foot pain. He may be seeing a vascular doctor as well. He states that he has been having significant numbness in his feet that has developed over the last few months. He was very ill in February. He thinks he acquired COVID-19, but that was before any testing was done. He has not been tested for the antibodies which I have encouraged him to do so. He is now currently wearing 2 liters of oxygen during the day with any activity. He states he had been wearing it at night prior to this illness. He reports he has just been having significant health problems in the last few months. ALLERGIES: NONSTEROIDAL ANTI-INFLAMMATORIES, CODEINE, IBUPROFEN, ADHESIVE TAPE, and BENADRYL. CURRENT LIST OF MEDICATIONS: Lasix 40 mg daily, hydrocodone 10/325 t.i.d., Anoro Ellipta daily, albuterol inhaler, Zyrtec, Nu-Mag, buspirone, amitriptyline, Valium, potassium, triamterene and omeprazole. PQRS: 1. He has history of osteoarthritis in his spine, knees, shoulders and neck. Denies rheumatoid arthritis. 2. Height is 5 feet 7 inches, weight is 202, BMI is 31. 3. Vital signs 138/89, pulse is 89, respirations 14, oxygen sat is 98 on 2 liters of nasal cannula oxygen. 4. Pain score 7/10. 5. Denies dizziness, does not need help walking or standing, has not fallen in the last 3 months. 6. The patient is not on blood thinners, but does take medicine for hypertension. His opioid therapy is greater than 6 weeks; therefore, an opioid [address] [address] PAIN MANAGEMENT CONSULTATION Name: SUZYCHICHI Kristen Room #: REG [facility] Lala#: [id number] Admission: 08/25/19 Attend Phys: Maris Johnson Discharge: Date of : 53 Report #: [id number] signed contract is on the chart. Risk assessment is low. Functional assessment is . 7. Recreational drug use, he denies. He is a former smoker and does not drink alcohol. According to the prescription monitoring system, the patient is filling our medications appropriately. He is due to fill them this next week. His morphine milliequivalent is 30 MME per day. PHYSICAL EXAMINATION: GENERAL: This is a well-developed, well-nourished, well-hydrated 63-year-old who is alert and orientated, placing his current pain score at 7/10 today. HEENT: Normocephalic, atraumatic. Extraocular eye muscles are intact. He is wearing a mask. LUNGS: He has diminished lung sounds. He is wearing oxygen at 2 liters. MUSCULOSKELETAL: Tenderness in the paraspinal musculature of his neck that does radiate into his shoulders. He walks with a slow antalgic gait, uses armrest to move from the sitting to standing position. He has numbness in his bilateral feet. His extremities are cool to the touch today with no cyanosis. IMPRESSION: 1. Chronic intractable low back pain. 2. Cervical spondylosis with radiculopathy. 3. Cervicalgia with spondylosis. 4. Osteoarthritis of multiple joints. 5. Possible peripheral neuropathy involving his hands and feet. 6. Management of high risk medications under terms of written opioid agreement. We reviewed the fact that opiate medications are being used to provide analgesia adequate to support activities of daily living, not attempting to achieve a specific pain score on the 0-10 Visual Analog Scale. The current opiate medications are providing sufficient analgesia to allow the patient to participate in activities of daily living. The patient is not exhibiting any aberrant behavior suggestive of drug diversion. The patient is not having any adverse reactions to medications. The patient is not suffering from daytime somnolence or mental acuity changes. The patient is managing opiate-induced constipation with appropriate ikwd-jjy-htjqrnc agents and dietary considerations. The patient was counseled on concern for caution with operating a motor vehicle while using opiate medications. PLAN: 1. We discussed treatment options with the patient today. The patient continues to have ongoing health issues since we have last seen him. He is now wearing oxygen during the day at 2 liters. He is seeing a cardiology consultants who has been adjusting his medications, starting him on Lasix and potassium. He complains of significant cramping in his extremities, muscle spasms. I have [facility] [address] [place] [address] PAIN MANAGEMENT CONSULTATION Name: CHICHI ALMONTE Room #: REG [facility].#: [id number] Admission: 08/25/19 Attend Phys: Maris Johnson Discharge: Date of : 53 Report #: [id number] offered him a muscle relaxant. The patient states he has an adverse reaction to those medications, so I encouraged him to take tonic water if he feels his cramping is significant. The patient verbalizes understanding. 2. The patient does complain of numbness in his feet. We did discuss gabapentin and Lyrica as a possible medication for neuropathy. He is still undergoing testing with the cardiology consultants and possibly seeing a neurologist or possibly a vascular doctor next week, he is unsure. He states his knows, but she is not here present today. At this time, I will not start any medications until he has further testing, but we did write those medications down for him to discuss with the specialist he has seen. 3. We will continue him on his hydrocodone 10/325 three times a day for today, 4 and 8-week supply. These will be sent electronically by Dr. Chichi Merino to his pharmacy. 4. I encouraged the patient to keep us apprised of what he is learning from his primary care doctors and his specialist. I also encouraged him to have antibody testing for the COVID virus through his primary care doctor's nurse practitioner. The patient verbalizes understanding. He will ask them regarding this. 5. The patient will be seen in followup in 3 months if not sooner. Care given today under collaboration with Dr Merino. <ELECTRONICALLY SIGNED> By: Maris Johnson 08/25/19 1243 [id number] Maris Johnson /nt
== END ==
LOC: PAIN 06:53
PROVIDERS: ATTEND Clinical Nurse Specialist Adult Health
DX: M47.22 Other spondylosis with radiculopathy, cervical region (principal); M19.012 Primary osteoarthritis, left shoulder; M19.011 Primary osteoarthritis, right shoulder; M17.0 Bilateral primary osteoarthritis of knee; Z79.899 Other long term (current) drug therapy; Z79.891 Long term (current) use of opiate analgesic

== ENCOUNTER → 2019-11-17 | Outpatient (CLI) | payer OTHER ==
[~2019-11-17] VITALS: Ht 170.2 cm; Wt 91.7 kg
[~2019-11-17] MED LIST changes: +NORVASC 2.5 MG2.5 M1 PO; +PLAVIX 75 MG TA75 MG PO
[2019-11-17 09:31] VITALS: BP 151/88
--- NOTE | 2019-11-17 09:53 | NUR ---
Pain Clinic Assessment: 1. History of Osteoarthritis: SPINE KNEES LEFT SHOULDER NECK History of Rheumatoid Arthritis: Not Applicable 2. Height: 5 ft. 7 in. 170.2 cm. Weight: 202.2 lb. oz. 91.717 kg. Patient's BMI: 31.7 3. Vital Signs: BP: 151/88 Pulse: 97 Resp: 14 Temp: 02 Sat: 97 ECG Mon: 4. Pain Intensity: 7 5. Fall Risk: Dizziness: N Needs help standing or walking: N Fallen in the last 3 months: N Fall risk comments: 6. Patient on Blood Thinner: Clopidogrel Bisulf(Plavix 7. History of Hypertension: Y 8. Opioid Therapy greater than 6 weeks: Y Opiate Contract Signed: 04/05/18 9. Risk Assessment Tool Provided: LOW-2 10. Functional Assessment Tool: 11. Recreational Drug Use: Never Drug Type: Tobacco Use: Former Smoker Tobacco Type: Amount or Packs/day: How Many Years: Alcohol Use: No Frequency: Quant:
--- NOTE | 2019-11-21 07:17 | HPC ---
[facility] [place] [address] PAIN MANAGEMENT CONSULTATION Name: CHICHI ALMONTE [facility] [id number] Admission: 11/17/19 Attend Phys: Maris Johnson Discharge: Date of : 53 Report #: [id number] THIS REPORT FOR: cc: Efrain Garg MD, James E. MD Hocker,Maris MOORE ~ CC: Maris Merino MD DATE OF SERVICE: 11/17/2019 CHIEF COMPLAINT: Cervical myalgias, spondylosis, and low back pain. HISTORY OF PRESENT ILLNESS: This is a 63-year-old gentleman who returns to the pain clinic today with his . Today, he is reporting he has continued to have multiple health issues. He reports he has an aneurysm in his left groin area. He is unsure which vessel is affected. He is now on Plavix. He is not planning on having surgery to repair this aneurysm. He continues to be on 2-3 liters of oxygen depending on activity. He also has had several of his medications changed since our last visit. Today, the patient is here for medication refills of his hydrocodone that we prescribed for him for his chronic neck, low back and bilateral arm pain. He does report that it is a throbbing pain, worse with movement and weather changes. He feels that the medication is beneficial, though in helping dial down his pain. He does continue to have a pain pump that is nonfunctioning and still implanted per his report. He does not want any further surgeries. He has had many in the past and is not interested in any type of surgery in the future. The patient denies any problems with constipation or daytime somnolence as a result of his pain medication. ALLERGIES: NONSTEROIDAL ANTI-INFLAMMATORIES, CODEINE, IBUPROFEN, ADHESIVE TAPE, AND BENADRYL. CURRENT MEDICATIONS: Plavix, Norvasc, oxygen and hydrocodone 10/325 p.r.n., Lasix, Anoro Ellipta inhaler, albuterol inhaler, Zyrtec, magnesium, buspirone, amitriptyline, Valium, potassium, and omeprazole. PQRS: 1. He has arthritic changes in his neck, lumbar spine, shoulders and knees. Denies any rheumatoid arthritis. 2. Height is 5 feet 7 inches, weight is 220, BMI is 31. Vital signs 151/88, pulse is 97, respirations 14, oxygen sat is 97%. Pain score 7/10. 3. Fall risk. Denies dizziness, does not need assistance with walking. He has not fallen in the last 3 months. The patient is on Plavix as well as medications for hypertension. His opioid therapy is greater than 6 weeks; [address] [address] PAIN MANAGEMENT CONSULTATION Name: CHICHI ALMONTE Room #: REG [facility] Dai#: [id number] Admission: 11/17/19 Attend Phys: Maris Johnson Discharge: Date of : 53 Report #: [id number] therefore, an opioid signed contract is on the chart. Risk assessment is low. Functional assessment is . 4. Recreational drug use, he denies. He is a current smoker and does not drink alcohol. According to the prescription monitoring system, the patient is due to fill his medications early next week, filling them in a timely fashion at 30 morphine milliequivalents per day. He does take a benzodiazepine and knows the risk of taking these medications together he has been on both of them for quite some time and is stable. There is a drug screen on his chart that was appropriate for all of his medications. We will recheck that at his next visit. PHYSICAL EXAMINATION: GENERAL: This is a well-developed, well-nourished 63-year-old that smells strongly of tobacco smoke. Today, he is rating his pain score at 7/10. HEENT: Normocephalic, atraumatic. Extraocular eye muscles are intact. He is wearing a mask. LUNGS: He has diminished lung sounds. He is wearing 2 liters nasal cannula, shortness of breath with exertion. MUSCULOSKELETAL: He has a slow antalgic gait, raises from the sitting to standing position using the armrest. Complains of pain in his right outer aspect of his hip. He has tenderness in the paraspinal musculature of his neck that radiate into his shoulders. His upper and lower extremity strength judged to be symmetrical at 5/5. IMPRESSION: 1. Chronic intractable low back pain. 2. Cervical spondylosis with radiculopathy. 3. Cervicalgia with spondylosis. 4. Osteoarthritis of multiple joints. 5. Aneurysm on anticoagulation therapy. 6. Management of high risk medications under terms of written opioid agreement. We reviewed the fact that opiate medications are being used to provide analgesia adequate to support activities of daily living, not attempting to achieve a specific pain score on the 0-10 Visual Analog Scale. The current opiate medications are providing sufficient analgesia to allow the patient to participate in activities of daily living. The patient is not exhibiting any aberrant behavior suggestive of drug diversion. The patient is not having any adverse reactions to medications. The patient is not suffering from daytime somnolence or mental acuity changes. The patient is managing opiate-induced constipation with appropriate xtjh-ejt-gpuuvpg agents and dietary considerations. The patient was counseled on concern for caution with operating a motor vehicle while using opiate medications. A physical exam was performed and the patient's functional status was evaluated. [facility] [address] [place] [address] PAIN MANAGEMENT CONSULTATION Name: CHICHI ALMONTE Room #: REG [facility].#: [id number] Admission: 11/17/19 Attend Phys: Maris Johnson Discharge: Date of : 53 Report #: [id number] All patients with back pain were advised against the bed rest greater than 4 days and were advised to return to normal activities. Pain score assessment was noted and the treatment plan was reviewed with the patient. All current medications, both prescribed and OTC were reviewed and reconciled on the electronic medical record. Tobacco screening was accomplished and smoking cessation was advised when indicated. BMI was noted and diet/exercise modification was recommended for all patients following outside normal parameters. I reviewed with the patient today their responsibilities to safeguard prescription medications, reviewed their responsibility to utilize medications only as prescribed by the physician. They are to seek and receive pain medications only from 1 physician group ( [facility]). They are to use 1 pharmacy and keep the clinic informed if they change pharmacies. Their responsibilities include making followup visits in a timely fashion and to avoid abrupt discontinuation of medication usage. Their responsibilities further include bringing their medications (bottles from the pharmacy with residual pills) to the visit for possible confirmation of pill counts and the patient understands it is their responsibility to submit to random drug screens to ensure both that the medications prescribed are present, and that no other controlled substances are present. All prescriptions provided today were generated electronically. PLAN: 1. We discussed treatment options with the patient today. I encouraged him to stop smoking. He smells very strongly of cigarette smoke today. He had quit for several months and now has returned. I explained to him the risks of smoking with oxygen near him. He explains he does not smoke anywhere near his oxygen tanks are located. This is verified by his . I explained to him that his breathing and pain would be improved if he did stop smoking again. The patient states he will consider this. 2. The patient is on Plavix for an aneurysm. He is unsure what vessel. The aneurysm was located. He does see a vascular doctor on a regular basis. He is now on Plavix. He has no intent of having this fixed surgical. 3. We will continue him on his hydrocodone 10/325 three times a day. These scripts will be set electronically by Dr. Chichi Merino for today 4-week and 8-week supply. The patient denies any somnolence or constipation issues as a result of this medication. 4. The patient will return in 3 months' time. At that time, we will repeat a urine drug screen on him. 5. The patient is seen today in collaboration with Dr. Chichi Merino. <ELECTRONICALLY SIGNED> By: Maris Johnson 11/21/19 0717 [id number] Maris Johnson /nt
== END ==
LOC: PAIN 06:56
PROVIDERS: ATTEND Clinical Nurse Specialist Adult Health
DX: M47.22 Other spondylosis with radiculopathy, cervical region (principal); G89.29 Other chronic pain; M19.90 Unspecified osteoarthritis, unspecified site; F11.20 Opioid dependence, uncomplicated; M79.10 Myalgia, unspecified site; Z88.8 Allergy status to other drugs, medicaments and biological substances; Z79.899 Other long term (current) drug therapy; Z79.01 Long term (current) use of anticoagulants

== ENCOUNTER → 2020-02-13 | Outpatient (CLI) | payer OTHER ==
[~2020-02-13] VITALS: Ht 170.2 cm; Wt 91.4 kg
[~2020-02-13] MED LIST changes: +FUROSEMIDE 20 M20 MG PO; -LASIX 40 MG TAB40 MG PO; +TRIAMTERENE/HCT1 CA1 PO; +VOLTAREN GEL 1100 G2 TOP; +XARELTO2.5 MG PO
[2020-02-13 09:19] VITALS: BP 147/100
--- NOTE | 2020-02-13 09:20 | NUR ---
Pain Clinic Assessment: 1. History of Osteoarthritis: SPINE KNEES LEFT SHOULDER NECK History of Rheumatoid Arthritis: Not Applicable 2. Height: 5 ft. 7 in. 170.2 cm. Weight: 201.6 lb. oz. 91.445 kg. Patient's BMI: 31.6 3. Vital Signs: BP: 147/100 Pulse: 90 Resp: 18 Temp: 02 Sat: 100 ECG Mon: 4. Pain Intensity: 7-8 5. Fall Risk: Dizziness: N Needs help standing or walking: N Fallen in the last 3 months: N Fall risk comments: 6. Patient on Blood Thinner: XERALTO 7. History of Hypertension: Y 8. Opioid Therapy greater than 6 weeks: Y Opiate Contract Signed: 04/05/18 9. Risk Assessment Tool Provided: LOW-2 10. Functional Assessment Tool: 11. Recreational Drug Use: Never Drug Type: Tobacco Use: Former Smoker Tobacco Type: Amount or Packs/day: How Many Years: Alcohol Use: No Frequency: Quant:
--- NOTE | 2020-02-14 13:40 | HPC ---
[facility] [address] [place] [address] PAIN MANAGEMENT CONSULTATION Name: CHICHI ALMONTE [facility] [id number] Admission: 02/13/20 Attend Phys: Maris Johnson Discharge: Date of : 53 Report #: [id number] THIS REPORT FOR: cc: Efrain Garg MD, James E. MD Hocker,Maris MOORE ~ DATE OF SERVICE: 02/13/[address] Chichi Merino MD CHIEF COMPLAINT: Cervical myalgias, spondylosis and low back pain. HISTORY OF PRESENT ILLNESS: This is a pleasant 64-year-old gentleman who returns to the pain clinic today for refill of his hydrocodone. The patient takes this to help his ongoing cervical and lumbar pain. He is reporting his pain score of 7-8 today. Most bothersome is his lower back per his report. The patient reports this is a throbbing discomfort that is worse with movement and weather changes. The medications help relieve some of his discomfort. He denies any significant constipation as a result of this medication. The patient is not wearing oxygen today. He reports that he is able to breathe much better since they stopped his Plavix medication and transition him to Xarelto. He is also reporting less edema in his lower extremities. He is not going to need to have his aneurysm repaired due to improvement in his vessels since starting blood thinners. He continues to try to decrease his smoking and is down to half a pack a day with plans to quit in the next month. ALLERGIES: NONSTEROIDAL ANTI-INFLAMMATORIES, CODEINE, IBUPROFEN, ADHESIVE TAPE, BENADRYL AND PLAVIX. CURRENT LIST OF MEDICATIONS: Hydrochlorothiazide, Xarelto, hydrocodone 10/325, Lasix, Anoro Ellipta, albuterol, Zyrtec, Nu-Mag, buspirone, amitriptyline, Valium, potassium, and omeprazole. PQRS: 1. He has arthritic changes in his neck and lumbar spine as well as his knees and shoulders. Denies any rheumatoid arthritis. 2. Height is 5 feet 7 inches, weight is 201, BMI is 31. 3. Vital signs 147/100, pulse is 100, respirations 18, oxygen sat is 90. 4. Pain score is 7-8. 5. Denies dizziness, does not need help walking or standing, has not fallen in the last 3 months. 6. The patient is on Xarelto as well as medicines for hypertension. 7. Opioid therapy is greater than 6 weeks; therefore, an opioid signed contract is on the chart. Risk assessment is low. Functional assessment is . 8. Recreational drug use, he denies. He is a current smoker about half a pack of cigarettes a day [place] [address] PAIN MANAGEMENT CONSULTATION Name: CHICHI ALMONTE Room #: REG [facility] Lala#: [id number] Admission: 02/13/20 Attend Phys: Maris Johnson Discharge: Date of : 53 Report #: [id number] According to the prescription monitoring system, he is due to fill his medications today, filling them in a timely fashion. Morphine mEq is 30 MME. We will check a random drug screen on this patient today. PHYSICAL EXAMINATION: GENERAL: This is alert and orientated 64-year-old gentleman who appears his stated age, smelling strongly of cigarette smoke, rating his pain score as 7-8. HEENT: Normocephalic, atraumatic. Extraocular eye muscles are intact. He is wearing a mask. LUNGS: Sounds diminished. MUSCULOSKELETAL: He has tenderness in the lumbosacral region of his back as well as his cervical spine that does radiate into his shoulders with upper and lower extremity strength of 5/5. He has a slow antalgic gait. IMPRESSION: 1. Chronic intractable low back pain. 2. Cervical spondylosis with radiculopathy. 3. Cervicalgia with spondylosis. 4. Osteoarthritis affecting multiple joints. 5. Aneurysm on anticoagulation therapy, Xarelto. 6. Management of high risk medications under written opioid agreement. 7. Tobacco habituation. We reviewed the fact that opiate medications are being used to provide analgesia adequate to support activities of daily living, not attempting to achieve a specific pain score on the 0-10 Visual Analog Scale. The current opiate medications are providing sufficient analgesia to allow the patient to participate in activities of daily living. The patient is not exhibiting any aberrant behavior suggestive of drug diversion. The patient is not having any adverse reactions to medications. The patient is not suffering from daytime somnolence or mental acuity changes. The patient is managing opiate-induced constipation with appropriate xkdn-qaa-udtyxst agents and dietary considerations. The patient was counseled on concern for caution with operating a motor vehicle while using opiate medications. PLAN: 1. We discussed treatment options with the patient today. The patient reports a plan to stop smoking in February. He is going to buy his last pack of cigarettes and continue to wean off and stop within the month. He currently wears oxygen at home at night, no longer during the day and does not smoke when he is wearing oxygen. His plan is to put up a sign, "nobody will smoke in his house" as well. 2. We will continue him on his hydrocodone 10/325. The patient utilizes 3 tablets a day on average. 3. The patient is unable to take a nonsteroidal anti-inflammatory due to his Xarelto, but has arthritic changes in his hands. We will trial him on [facility] [address] [place] [address] PAIN MANAGEMENT CONSULTATION Name: CHICHI ALMONTE Kristen Room #: REG [facility].#: [id number] Admission: 02/13/20 Attend Phys: Maris Johnson Discharge: Date of : 53 Report #: [id number] gel to see if this is beneficial. Scripts sent for 1 tube, if it is beneficial, we will call in additional tubes. 4. We will collect a random drug screen on this patient today since it has been greater than a year. The patient is seen today in collaboration with Dr. Merino. <ELECTRONICALLY SIGNED> By: Maris Johnson 02/14/20 1340 [id number] Maris Johnson /janette
== END ==
LOC: PAIN 06:48
PROVIDERS: ATTEND Clinical Nurse Specialist Adult Health
DX: M47.22 Other spondylosis with radiculopathy, cervical region (principal); M47.816 Spondylosis without myelopathy or radiculopathy, lumbar region; M79.10 Myalgia, unspecified site; G89.29 Other chronic pain; M19.90 Unspecified osteoarthritis, unspecified site; F11.20 Opioid dependence, uncomplicated; F17.200 Nicotine dependence, unspecified, uncomplicated; Z79.01 Long term (current) use of anticoagulants; Z88.8 Allergy status to other drugs, medicaments and biological substances; Z79.899 Other long term (current) drug therapy

== ENCOUNTER → 2020-05-07 | Outpatient (CLI) | payer OTHER ==
[~2020-05-07] VITALS: Ht 170.2 cm; Wt 95.8 kg
[2020-05-07 09:34] VITALS: BP 143/82
--- NOTE | 2020-05-07 09:38 | NUR ---
Pain Clinic Assessment: 1. History of Osteoarthritis: SPINE KNEES LEFT SHOULDER NECK History of Rheumatoid Arthritis: Not Applicable 2. Height: 5 ft. 7 in. 170.2 cm. Weight: 211.2 lb. oz. 95.800 kg. Patient's BMI: 33.1 3. Vital Signs: BP: 143/82 Pulse: 89 Resp: 16 Temp: 02 Sat: 96 ECG Mon: 4. Pain Intensity: 7-8 5. Fall Risk: Dizziness: N Needs help standing or walking: N Fallen in the last 3 months: Y Fall risk comments: 6. Patient on Blood Thinner: XERALTO 7. History of Hypertension: Y 8. Opioid Therapy greater than 6 weeks: Y Opiate Contract Signed: 04/05/18 9. Risk Assessment Tool Provided: LOW-2 10. Functional Assessment Tool: 11. Recreational Drug Use: Never Drug Type: Tobacco Use: Former Smoker Tobacco Type: Amount or Packs/day: How Many Years: Alcohol Use: No Frequency: Quant:
== END ==
LOC: PAIN 06:49
PROVIDERS: ATTEND Anesthesiology Pain Medicine
DX: M54.9 Dorsalgia, unspecified (principal); G89.29 Other chronic pain; M96.1 Postlaminectomy syndrome, not elsewhere classified; M47.22 Other spondylosis with radiculopathy, cervical region; F11.20 Opioid dependence, uncomplicated; Z87.891 Personal history of nicotine dependence; Z88.8 Allergy status to other drugs, medicaments and biological substances; Z79.899 Other long term (current) drug therapy

== ENCOUNTER → 2020-08-02 | Outpatient (CLI) | payer OTHER ==
[~2020-08-02] VITALS: Ht 170.2 cm; Wt 86.8 kg
[~2020-08-02] MED LIST changes: +MAGNESIUM250 M1 PO
[2020-08-02 09:04] VITALS: BP 127/87
--- NOTE | 2020-08-02 09:14 | NUR ---
Pain Clinic Assessment: 1. History of Osteoarthritis: SPINE KNEES LEFT SHOULDER NECK History of Rheumatoid Arthritis: Not Applicable 2. Height: 5 ft. 7 in. 170.2 cm. Weight: 191.4 lb. oz. 86.819 kg. Patient's BMI: 30.0 3. Vital Signs: BP: 127/87 Pulse: 84 Resp: 14 Temp: 02 Sat: 97 ECG Mon: 4. Pain Intensity: 7 5. Fall Risk: Dizziness: N Needs help standing or walking: N Fallen in the last 3 months: N Fall risk comments: 6. Patient on Blood Thinner: XARELTO 7. History of Hypertension: Y 8. Opioid Therapy greater than 6 weeks: Y Opiate Contract Signed: 04/05/18 9. Risk Assessment Tool Provided: LOW-2 10. Functional Assessment Tool: 11. Recreational Drug Use: Never Drug Type: Tobacco Use: Former Smoker Tobacco Type: Amount or Packs/day: How Many Years: Alcohol Use: No Frequency: Quant:
== END ==
LOC: PAIN 06:54
PROVIDERS: ATTEND Clinical Nurse Specialist Adult Health
DX: G89.4 Chronic pain syndrome (principal); M47.22 Other spondylosis with radiculopathy, cervical region; I10 Essential (primary) hypertension; Z79.891 Long term (current) use of opiate analgesic; Z79.899 Other long term (current) drug therapy; Z88.5 Allergy status to narcotic agent; Z88.6 Allergy status to analgesic agent; Z88.8 Allergy status to other drugs, medicaments and biological substances

== ENCOUNTER → 2020-10-29 | Outpatient (CLI) | payer OTHER ==
[~2020-10-29] VITALS: Ht 170.2 cm; Wt 83.5 kg
[~2020-10-29] MED LIST changes: +GLIPIZIDE ER2.5 MG PO; +VOLTAREN ARTHRI20 GM TOP
[2020-10-29 09:03] VITALS: BP 125/86
--- NOTE | 2020-10-29 09:11 | NUR ---
Pain Clinic Assessment: 1. History of Osteoarthritis: SPINE KNEES LEFT SHOULDER NECK History of Rheumatoid Arthritis: Not Applicable 2. Height: 5 ft. 7 in. 170.2 cm. Weight: 184.0 lb. oz. 83.462 kg. Patient's BMI: 28.8 3. Vital Signs: BP: 125/86 Pulse: 91 Resp: 16 Temp: 02 Sat: 96 ECG Mon: 4. Pain Intensity: 8 5. Fall Risk: Dizziness: N Needs help standing or walking: N Fallen in the last 3 months: N Fall risk comments: 6. Patient on Blood Thinner: XARELTO 7. History of Hypertension: Y 8. Opioid Therapy greater than 6 weeks: Y Opiate Contract Signed: 04/05/18 9. Risk Assessment Tool Provided: LOW-2 10. Functional Assessment Tool: 11. Recreational Drug Use: Never Drug Type: Tobacco Use: Former Smoker Tobacco Type: Amount or Packs/day: How Many Years: Alcohol Use: No Frequency: Quant:
== END ==
LOC: PAIN 10-26 10:02
PROVIDERS: ATTEND Clinical Nurse Specialist Adult Health
DX: G89.29 Other chronic pain (principal); M47.22 Other spondylosis with radiculopathy, cervical region; E11.9 Type 2 diabetes mellitus without complications; M43.20 Fusion of spine, site unspecified; Z86.79 Personal history of other diseases of the circulatory system; F17.200 Nicotine dependence, unspecified, uncomplicated; Z79.84 Long term (current) use of oral hypoglycemic drugs

== ENCOUNTER → 2021-01-21 | Outpatient (CLI) | payer OTHER ==
[~2021-01-21] VITALS: Ht 170.2 cm; Wt 82.0 kg
[2021-01-21 10:24] VITALS: BP 105/73
--- NOTE | 2021-01-21 10:35 | NUR ---
Pain Clinic Assessment: 1. History of Osteoarthritis: SPINE KNEES LEFT SHOULDER NECK History of Rheumatoid Arthritis: Not Applicable 2. Height: 5 ft. 7 in. 170.2 cm. Weight: 180.8 lb. oz. 82.010 kg. Patient's BMI: 28.3 3. Vital Signs: BP: 105/73 Pulse: 89 Resp: 16 Temp: 02 Sat: 97 ECG Mon: 4. Pain Intensity: 7-8 5. Fall Risk: Dizziness: N Needs help standing or walking: N Fallen in the last 3 months: N Fall risk comments: 6. Patient on Blood Thinner: XARELTO 7. History of Hypertension: Y 8. Opioid Therapy greater than 6 weeks: Y Opiate Contract Signed: 04/05/18 9. Risk Assessment Tool Provided: LOW-2 10. Functional Assessment Tool: 11. Recreational Drug Use: Never Drug Type: Tobacco Use: Current Every Day Smoker Tobacco Type: Cigarettes Amount or Packs/day: 1/2 How Many Years: Alcohol Use: No Frequency: Quant: \
== END ==
LOC: PAIN 09:18
PROVIDERS: ATTEND Clinical Nurse Specialist Adult Health
DX: G89.29 Other chronic pain (principal); M47.22 Other spondylosis with radiculopathy, cervical region; E11.9 Type 2 diabetes mellitus without complications; Z72.0 Tobacco use; Z88.8 Allergy status to other drugs, medicaments and biological substances; Z79.899 Other long term (current) drug therapy

== ENCOUNTER → 2021-04-15 | Outpatient (CLI) | payer OTHER ==
[~2021-04-15] VITALS: Ht 175.3 cm; Wt 81.2 kg
[~2021-04-15] MED LIST changes: +ARTHRITIS PAIN100 GM TOP
[2021-04-15 09:17] VITALS: BP 142/75
--- NOTE | 2021-04-15 09:23 | NUR ---
Pain Clinic Assessment: 1. History of Osteoarthritis: SPINE KNEES LEFT SHOULDER NECK History of Rheumatoid Arthritis: Not Applicable 2. Height: 5 ft. 9 in. 175.3 cm. Weight: 179.0 lb. oz. 81.194 kg. Patient's BMI: 26.4 3. Vital Signs: BP: 142/75 Pulse: 87 Resp: 16 Temp: 02 Sat: 96 ECG Mon: 4. Pain Intensity: 7-8 5. Fall Risk: Dizziness: N Needs help standing or walking: N Fallen in the last 3 months: N Fall risk comments: 6. Patient on Blood Thinner: XARELTO 7. History of Hypertension: Y 8. Opioid Therapy greater than 6 weeks: Y Opiate Contract Signed: 04/05/18 9. Risk Assessment Tool Provided: LOW-2 10. Functional Assessment Tool: 11. Recreational Drug Use: Never Drug Type: Tobacco Use: Current Every Day Smoker Tobacco Type: Cigarettes Amount or Packs/day: 6 PER DAY How Many Years: Alcohol Use: No Frequency: Quant:
== END ==
LOC: PAIN 08:15
PROVIDERS: ATTEND Clinical Nurse Specialist Adult Health
DX: G89.29 Other chronic pain (principal); M47.22 Other spondylosis with radiculopathy, cervical region; Z72.0 Tobacco use; Z88.8 Allergy status to other drugs, medicaments and biological substances; Z79.899 Other long term (current) drug therapy